=== PATIENT | female | born 1935 | race Hispanic/Latino ===

== ENCOUNTER 2017-02-18 05:01 | Observation (INO) | payer MEDICARE ==
[2017-02-18 05:07] VITALS: BMI 28.3
--- NOTE | 2017-02-18 05:14 | ED PDOC ---
Arrival/HPI - General Time Seen by Provider: 02/18/17 05:03 Historian: Patient - History of Present Illness Narrative History of Present Illness (Text): 02/18/17 05:13 Shirley Sky is an 81 year old female, whose past medical history includes hypertension, hyperlipidemia, anxiety, and basal cell carcinoma, who presents to the Emergency department complaining of chest pain. Patient states she has been experiencing left-sided chest discomfort with associated cold sweats and dizziness since waking up yesterday morning. Patient denies any fever, shortness of breath, nausea, vomiting, diarrhea, urinary symptoms, back pain, neck pain, headache, focal neurological deficits, or any other complaints. PMD: Dr. Barajas/Dr. Richards Time/Duration: 24 hours Symptom Onset: Gradual Symptom Course: Unchanged Activities at Onset: Light Context: Home Past Medical History - Provider Review Nursing Documentation Reviewed: Yes - Infectious Disease Hx of Infectious Diseases: None - Tetanus Immunization Tetanus Immunization: Unknown - Cardiac Hx Cardiac Disorders: Yes Hx Hypertension: Yes - Pulmonary Hx Respiratory Disorders: No - Neurological Hx Neurological Disorder: Yes Hx Dizziness: Yes Other/Comment: Tinnitus secondary to intake of aspirin - HEENT Hx HEENT Disorder: Yes Hx Blind: Yes (Right) Hx Cataracts: Yes (Right sx) - Renal Hx Renal Disorder: No - Endocrine/Metabolic Hx Endocrine Disorders: No - Hematological/Oncological Hx Blood Disorders: Yes Hx Cancer: Yes (Melanoma of nose) Other/Comment: Malaria - Integumentary Hx Dermatological Disorder: Yes Hx Melanoma: Yes (Nose) - Musculoskeletal/Rheumatological Hx Musculoskeletal Disorders: Yes Hx Arthritis: Yes Hx Back Pain: Yes Hx Falls: Yes - Gastrointestinal Hx Gastrointestinal Disorders: Yes Hx Gastroesophageal Reflux: Yes - Genitourinary/Gynecological Hx Genitourinary Disorders: No - Psychiatric Hx Psychophysiologic Disorder: Yes Hx Anxiety: Yes Hx Depression: Yes Hx Emotional Abuse: No Hx Panic Disorder: Yes Hx Physical Abuse: No Hx Substance Use: No - Surgical History Hx Hysterectomy: Yes Other/Comment: Right eye cataract surgery - Anesthesia Hx Anesthesia Reactions: No Hx Malignant Hyperthermia: No - Suicidal Assessment Feels Threatened In Home Enviroment: No Family/Social History - Physician Review Nursing Documentation Reviewed: Yes Family/Social History: Unknown Family HX Smoking Status: Never Smoked Hx Alcohol Use: No Hx Substance Use: No Hx Substance Use Treatment: No Allergies/Home Meds Allergies/Adverse Reactions: Allergies aspirin Adverse Reaction (Intermediate, Verified 02/18/17 05:11) Tinnitus Reported as per patient Home Medications: Home Meds Medication Instructions Recorded Confirmed Amlodipine/Valsartan [Exforge 10 1 tab PO QAM 02/04/15 02/18/17 mg-320 mg] buPROPion XL [Wellbutrin XL] 300 mg PO QAM 02/04/15 02/18/17 Citalopram [celeXA] 20 mg PO DAILY 04/13/16 02/18/17 traZODone [trazODONE HYDROCHLORIDE] 50 mg PO HS 02/18/17 02/18/17 Review of Systems - Physician Review All systems were reviewed & negative as marked: Yes - Review of Systems Constitutional: Other (+cold sweats). absent: Fevers Eyes: Normal ENT: Normal Respiratory: Normal. absent: SOB, Cough Cardiovascular: Chest Pain Gastrointestinal: Normal. absent: Abdominal Pain, Diarrhea, Nausea, Vomiting Genitourinary Female: Normal. absent: Dysuria, Frequency, Hematuria, Urine Output Changes Musculoskeletal: Normal. absent: Back Pain, Neck Pain Skin: Normal. absent: Rash Neurological: Dizziness. absent: Headache Endocrine: Normal Hemo/Lymphatic: Normal Psychiatric: Normal Physical Exam Vital Signs Reviewed: Yes Vital Signs Temp Pulse Resp BP Pulse Ox 02/18/17 10:49 76 17 163/77 H 96 02/18/17 09:53 161/79 H 02/18/17 09:24 98.8 F 81 17 158/74 H 96 02/18/17 07:46 98.9 F 67 17 162/84 H 98 02/18/17 05:05 99.0 F 83 18 174/80 H 98 Temperature: Afebrile Blood Pressure: Hypertensive Pulse: Regular Respiratory Rate: Normal Appearance: Positive for: Well-Appearing, Non-Toxic, Comfortable Pain Distress: None Mental Status: Positive for: Alert and Oriented X 3 - Systems Exam Head: Present: Atraumatic, Normocephalic Pupils: Present: PERRL Extroacular Muscles: Present: EOMI Conjunctiva: Present: Normal Mouth: Present: Moist Mucous Membranes Neck: Present: Normal Range of Motion Respiratory/Chest: Present: Clear to Auscultation, Good Air Exchange. No: Respiratory Distress, Accessory Muscle Use Cardiovascular: Present: Regular Rate and Rhythm, Normal S1, S2. No: Murmurs Abdomen: Present: Normal Bowel Sounds. No: Tenderness, Distention, Peritoneal Signs Back: Present: Normal Inspection Upper Extremity: Present: Normal Inspection. No: Cyanosis, Edema Lower Extremity: Present: Normal Inspection. No: Edema Neurological: Present: GCS=15, CN II-XII Intact, Speech Normal Skin: Present: Warm, Dry, Normal Color. No: Rashes Psychiatric: Present: Alert, Oriented x 3, Normal Insight, Normal Concentration Medical Decision Making ED Course and Treatment: 02/18/17 05:13 Impression: 81 year old female complaining of left-sided chest discomfort, cold sweats, and dizziness since yesterday morning. Plan: -- EKG -- Chest X-ray -- Labs, cardiac enzymes -- Reassess and disposition Prior Visits: Notes and results from previous visits were reviewed. On 04/12/2016, pt was seen in the Emergency department for epigastric/lower chest discomfort with diaphoresis and generalized weakness. Pt was admitted to the hospital for further evaluation. Progress Notes: Reviewed EKG, NSR at [address]-segment elevations or depressions, no T-wave inversions, normal intervals. 02/18/17 05:57 Reviewed radiology, Chest X-ray shows no acute processes. 02/18/17 06:32 Case d/w PMD .Accepts to his service - Lab Interpretations Lab Results: 02/18/17 05:38 02/18/17 05:38 Lab Results 02/18/17 05:38: WBC 7.0 D, RBC 4.55, Hgb 13.3, Hct 38.6, MCV 84.8, MCH 29.2, MCHC 34.5, RDW 13.4, Plt Count 258, MPV 9.0 02/18/17 05:38: Sodium 129 L, Potassium 3.6, Chloride 93 L, Carbon Dioxide 26, Anion Gap 14, BUN 10, Creatinine 0.7, Est GFR ( Amer) > 60, Est GFR (Non- Af Amer) > 60, Random Glucose 161 H, Calcium 8.6, Total Bilirubin 1.8 H, AST 27 , ALT 21, Alkaline Phosphatase 63, Lactate Dehydrogenase 493, Total Creatine Kinase 206, Troponin I < 0.01, Total Protein 6.8, Albumin 4.0, Globulin 2.8, Albumin/Globulin Ratio 1.4 02/18/17 05:38: PT 11.7, INR 1.08, APTT 29.5 02/18/17 05:30: Serum Osmolality 280 02/18/17 05:30: Uric Acid 2.8 - RAD Interpretation Radiology Orders: 02/18/17 05:13 CHEST PORTABLE [RAD] Stat Offset Press Operator Apprentice: ED Physician - EKG Interpretation Interpreted by ED Physician: Yes Type: 12 lead EKG - Medication Orders Current Medication Orders: Amlodipine Besylate (Norvasc) 10 mg PO DAILY [facility] Last Admin: 02/18/17 09:53 Dose: 10 mg [facility] Blood Pressure Document 02/18/17 09:53 IT (Rec: 02/18/17 09:54 IT [facility] [id number]) Blood Pressure Blood Pressure (100/60-150/90) 161/79 Bupropion HCl (Wellbutrin Xl) [facility] Last Admin: 02/18/17 09:53 Dose: 300 mg Citalopram Hydrobromide (Celexa) 20 mg PO DAILY [facility] Last Admin: 02/18/17 09:53 Dose: 20 mg Pantoprazole Sodium (Protonix Inj) 40 mg IVP DAILY [facility] Last Admin: 02/18/17 15:00 Dose: 40 mg IVP Administration Document 02/18/17 15:00 MANIL (Rec: 02/18/17 16:49 MANIL [id number]) Charges for Administration # of IVP Administrations 1 Trazodone HCl (Desyrel) 50 mg PO HS [facility] Discontinued Medications Acetaminophen (Tylenol 325mg Tab) 650 mg PO STAT STA Stop: 02/18/17 05:42 Last Admin: 02/18/17 05:48 Dose: 650 mg [facility] Pain/Vitals Document 02/18/17 05:48 SS (Rec: 02/18/17 05:48 SS [id number]) Pain Reassessment Is This A Pain ReAssessment? No Sleep Is patient sleeping during reassessment? No Presence of Pain Presence of Pain Yes Location Upper or Lower Lower Pain Location Body Blade Grinder Re-Assess: MAR Pain/Vitals Document 02/18/17 06:48 GMI (Rec: 02/18/17 07:51 GMI [id number]) Pain Reassessment Is This A Pain ReAssessment? Yes Sleep Is patient sleeping during reassessment? No Presence of Pain Presence of Pain No Diphenhydramine HCl (Benadryl) 25 mg IVP ONCE ONE Stop: 02/18/17 06:54 Last Admin: 02/18/17 07:09 Dose: 25 mg IVP Administration Document 02/18/17 07:09 SS (Rec: 02/18/17 07:09 SS [id number]) Charges for Administration # of IVP Administrations 1 Metoclopramide HCl (Reglan) 5 mg IVP ONCE ONE Stop: 02/18/17 06:54 Last Admin: 02/18/17 07:09 Dose: 5 mg IVP Administration Document 02/18/17 07:09 SS (Rec: 02/18/17 07:10 SS [id number]) Charges for Administration # of IVP Administrations 1 - Scribe Statement The provider has reviewed the documentation as recorded by the Sandra Dotson Provider Scribe Attestation: All medical record entries made by the Scribpj were at my direction and personally dictated by me. I have reviewed the chart and agree that the record accurately reflects my personal performance of the history, physical exam, medical decision making, and the department course for this patient. I have also personally directed, reviewed, and agree with the discharge instructions and disposition. Disposition/Present on Arrival - Present on Arrival Any Indicators Present on Arrival: No History of DVT/PE: No History of Uncontrolled Diabetes: No Urinary Catheter: No History Surgical Site Infection Following: None - Disposition Have Diagnosis and Disposition been Completed?: Yes Diagnosis: Chest pain Disposition: HOSPITALIZED Disposition Time: 06:33 Patient Plan: Observation Patient Problems: Current Active Problems Problem Status Onset Chest pain Acute Condition: STABLE
[2017-02-18 06:01] LABS: HEMATOCRIT 38.6 % (36.0-48.0); MEAN CELL VOLUME 84.8 fl (80.0-105.0); MEAN CORPUSCULAR HEMOGLOBIN 29.2 pg (25.0-35.0); MEAN CORPUSCULAR HGB CONC 34.5 g/dl (31.0-37.0); RED CELL DISTRIBUTION WIDTH 13.4 % (11.5-14.5)
[2017-02-18 06:08] LABS: INR 1.08 (0.93-1.08); PARTIAL THROMBOPLASTIN TIME 29.5 Seconds (23.7-30.8)
[2017-02-18 06:10] LABS: ALB/GLOB RATIO 1.4 (1.1-1.8); ALKALINE PHOSPHATASE 63 U/L (38-126); ALT/SGPT 21 U/L (7-56); AST/SGOT 27 U/L (14-36); BILIRUBIN,TOTAL 1.8 mg/dL (0.2-1.3); BLOOD UREA NITROGEN 10 mg/dL (7-21); CALCIUM 8.6 mg/dL (8.4-10.5); CARBON DIOXIDE 26 mmol/L (21-33); CHLORIDE 93 mmol/L (98-107); GFR AFRICAN-AMERICAN > 60; GLUCOSE,RANDOM 161 mg/dL (70-110); POTASSIUM 3.6 mmol/L (3.6-5.0); SODIUM 129 mmol/L (132-148); TOTAL PROTEIN 6.8 g/dL (5.8-8.3)
[2017-02-18 06:19] LABS: TROPONIN I < 0.01 ng/mL
[2017-02-18] MEDS ORDERED: DiphenhydrAMINE 50 mg/ml Inj IVP ONE (06:53)
[2017-02-18] MEDS: buPROPion 300 mg/24 Hours XL Tab PO SCH (09:53)
--- NOTE | 2017-02-18 11:05 | RAD ---
HISTORY: Flu-like symptoms, pain. Technique: Single view portable semi erect @ 05:46 COMPARISON: 12/11/2015 FINDINGS: LUNGS: No active pulmonary disease. PLEURA: No significant pleural effusion identified, no pneumothorax apparent. CARDIOVASCULAR: No radiographic findings to suggest acute or significant cardiovascular disease. OSSEOUS STRUCTURES: No significant abnormalities. VISUALIZED UPPER ABDOMEN: Normal. OTHER FINDINGS: None. IMPRESSION: No active disease. No significant interval change compared to the prior examination(s). Please note: No preliminary report/ innterpretation of this examination provided by emergency department personnel.
--- NOTE | 2017-02-18 11:11 | HP ---
CHIEF COMPLAINT AND HISTORY OF PRESENT ILLNESS: This is an 81-year-old female who is coming into the hospital with past medical history of hypertension, dyslipidemia, anxiety, and basal cell carcinoma complaining of chest pain, mostly epigastric area. She says she was having pressure in the head. She also is complaining of chills. No fevers. She said she had taken Tylenol this morning. She said that at the ER she was saying that she was having left-sided chest discomfort. She did not complain of left-sided chest discomfort to me. She has no fevers or chills. Currently, she has no nausea, no vomiting, and no diarrhea. No dysuria or frequency. She had seen Dr. Hendricks in the past, but does not wish to see him anymore for her gastric issues. PAST MEDICAL HISTORY: 1. Hypertension. 2. Anxiety. 3. Basal cell carcinoma. PAST SURGICAL HISTORY: 1. Basal cell carcinoma, surgery of the left nasal bridge. 2. Partial hysterectomy. 3. Cardiac catheterization. 4. Endoscopy. ALLERGIES: ASPIRIN. HOME MEDICATIONS: Exforge, Wellbutrin, Celexa, and trazodone. FAMILY HISTORY: Father in his 80s. She does not know the cause of his . Mother at 88 of pancreatic cancer. SOCIAL HISTORY: She lives with her daughter. She does not smoke or drink. REVIEW OF SYSTEMS: All other review of symptoms are within normal limits except as mentioned. PHYSICAL EXAMINATION: VITAL SIGNS: Temperature is 98.9, pulse is 67, blood pressure is 162/84, respirations are 17, and O2 saturation is 98%. GENERAL: The patient lying in bed, uncomfortable, and in no acute distress. HEENT: Atraumatic and normocephalic. Anicteric sclerae. Moist mucosa. [place] conjunctivae. No oral lesions. NECK: No JVD, anterior and posterior adenopathy, thyromegaly, or bruits. CARDIOVASCULAR: S1 and S2 regular. No murmur, rubs, or gallop. LUNGS: Clear to auscultation bilaterally. No wheezes, rales, or rhonchi. ABDOMEN: Bowel sounds are positive. Soft, nontender and nondistended. No hepatosplenomegaly. No rebound and no guarding. EXTREMITIES: No cyanosis, clubbing, or edema. NEUROLOGIC: No facial asymmetry. Tongue is midline. No vulva deviation. Power is 5/5 upper extremity and lower extremity. Sensation intact in upper extremity and lower extremity. PSYCHIATRIC: She is awake, alert and oriented x3. No anxiety or depression. She has normal affect. GENITOURINARY: No CVA tenderness. VASCULAR: 2+ pulses in the carotid pulses and pedal pulses. SKIN: No erythema or nodules. SPINE: Shows normal curvature. EXTREMITIES: No cyanosis and clubbing, no edema. LABORATORY DATA: White count of 7.0 and hemoglobin of 13.3. INR is 1.08. Sodium is 129. She has troponin of 0.01. DIAGNOSTIC DATA: Chest x-ray done shows no infiltrates. ASSESSMENT: 1. Chest pain. 2. Hypertension. 3. Anxiety. 4. Epigastric pain. 5. Hyponatremia. PLAN: The patient is going to be admitted to the hospital. Her old records were reviewed. I did ask Dr. Retana to evaluate the patient. I will get the serial troponins. The patient is going to have continue her Celexa for her anxiety. She is on amlodipine for her hypertension. She is going to continue her Wellbutrin. She is going to be placed on heart healthy diet. Condition is stable. Activity, increase as tolerated. She has no fevers. Bhavesh Richards MD
--- NOTE | 2017-02-18 19:21 | CON ---
DATE: 02/18/2017 HISTORY OF PRESENT ILLNESS: This patient was seen and evaluated earlier today. This 81-year-old patient presented to the emergency room with feeling of chills and sweats and dizziness from yesterday morning and a whole day it lasted. It felt like flu-like symptoms. She also has history of heartburn. GI consult was requested to further evaluate because of this problem. PAST MEDICAL HISTORY: Other past medical history is significant for hypertension, anxiety and also basal cell carcinoma. The patient had a basal carcinoma of the left nasal bridge. She had a history of partial hysterectomy done in the past. She had an endoscopy and colonoscopies done in the past and colonoscopy revealed only normal. The upper GI endoscopy done on 02/05/[address] De Leon revealed only normal EGD and colonoscopy revealed redundant colon and internal hemorrhoids. The patient was hospitalized in 04/2016 and she was seen by Dr. Chino Hendricks for atypical chest pain. At that time, it was added Protonix and Carafate. SOCIAL HISTORY: Denies smoking or alcohol. REVIEW OF SYSTEMS: Positive as above. PHYSICAL EXAMINATION GENERAL: The patient is lying on the bed, not in acute distress. VITAL SIGNS: Pulse 76, blood pressure 163/77, respirations 17, O2 saturation 96%. HEENT: Anicteric. Has reduced vision on the right side. NECK: Supple. HEART: S1 and S2 heard. LUNGS: Bilateral air entry present. ABDOMEN: Soft. There is no tenderness at the present time. EXTREMITIES: No edema, no cyanosis. NEUROLOGIC: Alert and oriented. Moves all extremities. LABORATORY DATA: Hemoglobin is stable at 13.3, WBC 7, platelets 258. Total bilirubin is elevated to 1.8. IMPRESSION: 1. Atypical chest pain. 2. History of gastroesophageal reflux disease. 3. Elevated total bilirubin. DIFFERENTIAL DIAGNOSES: 1. Previous endoscopy reports are reviewed. I did discuss with the patient about the previous carpenter wooden tank erecting evaluations and offered them to be followed by Dr. De Leon or Dr. Hendricks, but the patient preferred to be followed up this admission by a different carpenter wooden tank erecting. She agreed to be followed since I proceeded with the consultation. 2. The differential diagnosis of atypical chest pain should include reflux disease, rule out cholelithiasis, rule out coronary artery disease. 2. Abnormal liver function tests, rule out Gilbert's, rule out hemolysis. 3. Other comorbidities include anxiety, hyponatremia, and hypertension. RECOMMENDATIONS: 1. We will request for direct bilirubin. 2. We will request for a reticulocyte count, LDH levels and haptoglobin to rule out any evidence of hemolysis with its mainly indirect bilirubin. 3. Ultrasound scan of the abdomen to further evaluate. 4. Continue the PPI. We will start the patient on Protonix. We will continue to closely follow up her care and suggest further management based on the clinical course. Marco Antonio Arambula MD MTDD
--- NOTE | 2017-02-18 19:37 | CARD ---
APPROVED REPORT EKG Measurement Heart [id number] ID [id number] <Conclusion> Normal sinus rhythm Normal ECG
[2017-02-19 07:34] VITALS: BP 164/89; RESP 20; TEMP 98; O2SAT 94
[2017-02-19] MEDS: buPROPion 300 mg/24 Hours XL Tab PO SCH (09:13)
--- NOTE | 2017-02-19 09:17 | US ---
HISTORY: atypical chest pain r/o gallstones COMPARISON: None. TECHNIQUE: Sonographic evaluation of the abdomen. FINDINGS: LIVER: Measures 15.2 cm. Normal echogenicity of the liver parenchyma. No mass. No intrahepatic bile duct dilatation. GALLBLADDER: The gallbladder is well distended without gallstones. There is small amount of layering sludge. No wall thickening or pericholecystic fluid. The sonographic Bhandari's sign is negative. COMMON BILE DUCT: Measures 4.6 mm. No stones. No dilatation. PANCREAS: Unremarkable as visualized. No mass. No ductal dilatation. RIGHT KIDNEY: Measures 10.5cm. Normal echogenicity. No calculus, mass, or hydronephrosis. LEFT KIDNEY: Measures 10.3cm. Normal echogenicity. No calculus, mass, or hydronephrosis. SPLEEN: Normal in size and contour. No mass. AORTA: No aneurysmal dilatation. IVC: Unremarkable. OTHER FINDINGS: None. IMPRESSION: No cholelithiasis or biliary dilatation.
[2017-02-19 11:14] VITALS: PULSE 93
--- NOTE | 2017-02-19 12:28 | CP.PCM.PN ---
<Yvette Arreaga - Last Filed: 02/19/17 12:21> Subjective - Date & Time of Evaluation Date of Evaluation: 02/19/17 Time of Evaluation: 10:15 - Subjective Subjective: Seen and examined at the bedside earlier this morning, no acute overnight events reported. Patient denies nausea, vomiting, shortness of breath, chest pain or abdominal pain. Patient went for abdominal ultrasound and this reported gallbladder sludge no cholelithiasis or biliary biliary dictation, the CBD measured 4.6. Objective - Vital Signs/Intake and Output Vital Signs (last 24 hours): Temp Pulse Resp BP Pulse Ox 98 F 93 H 20 164/89 H 94 L 02/19/17 07:34 02/19/17 10:00 02/19/17 07:34 02/19/17 09:13 02/19/17 07:34 Intake and Output: 02/19/17 02/19/17 06:59 18:59 Intake Total 120 Balance 120 - Labs Labs: PT 11.7 Seconds (9.9-11.8) 02/18/17 05:38 INR 1.08 (0.93-1.08) 02/18/17 05:38 APTT 29.5 Seconds (23.7-30.8) 02/18/17 05:38 - Constitutional Appears: No Acute Distress - Head Exam Head Exam: NORMOCEPHALIC - Eye Exam Eye Exam: Normal appearance. absent: Scleral icterus - ENT Exam ENT Exam: Mucous Membranes Moist - Neck Exam Neck Exam: Normal Inspection - Respiratory Exam Respiratory Exam: NORMAL BREATHING PATTERN. absent: Respiratory Distress - Cardiovascular Exam Cardiovascular Exam: +S1, +S2 - GI/Abdominal Exam GI & Abdominal Exam: Soft, Normal Bowel Sounds. absent: Guarding, Tenderness, Rebound - Extremities Exam Extremities Exam: Normal Capillary Refill. absent: Calf Tenderness, Pedal Edema - Neurological Exam Neurological Exam: Alert, Awake, Oriented x3 - Skin Skin Exam: Dry, Warm Assessment and Plan - Assessment and Plan (Free Text) Assessment: Assessment: Atypical chest pain/Epigastric pain, abdominal ultrasound negative for cholelithiasis did report some sludge, no CBD dilatation. History of hypertension Anxiety abnormal LFTs, R/O Gilbert's or hemolysis, direct bilirubin is within normal limits Plan: Continue PPI Diet as tolerated, trend LFTs Planned for discharge home can FU outpatient and discussed with patient and PCP would benefit from elective outpatient EGD. Seen and discussed with Dr. Arambula. <Marco Antonio Arambula V - Last Filed: 02/19/17 19:43> Objective - Vital Signs/Intake and Output Vital Signs (last 24 hours): Temp Pulse Resp BP Pulse Ox 98 F 93 H 20 164/89 H 94 L 02/19/17 07:34 02/19/17 10:00 02/19/17 07:34 02/19/17 09:13 02/19/17 07:34 - Labs Labs: PT 11.7 Seconds (9.9-11.8) 02/18/17 05:38 INR 1.08 (0.93-1.08) 02/18/17 05:38 APTT 29.5 Seconds (23.7-30.8) 02/18/17 05:38 Attending/Attestation - Attestation I have personally seen and examined this patient.: Yes I have fully participated in the care of the patient.: Yes I have reviewed all pertinent clinical information, including history, physical exam and plan: Yes Notes (Text): This is an addendum to GI progress report dictated by Yvette Arreaga APN.The patient was seen and examined earlier. Medical records, lab studies, imagings were reviewed. Last 24 hours events reviewed. Agreed with the above treatment plan as outlined in Yvette Arreaga APN's notes the with the addition of the following on examination abdomen soft there is no rebound tenderness is much improved The bilirubin is mainly indirect bilirubin Sonogram was negative. Patient would benefit from elective EGD. this will be arranged as outpatient discussed with Dr. Cohen 02/19/17 19:42
--- NOTE | 2017-02-19 17:49 | DS ---
SUBJECTIVE: This is an 81-year-old female who has come into the hospital and was complaining of some abdominal discomfort. She also had complaints of epigastric pain. She had an ultrasound of the abdomen that was done, showed no chololithiasis although ductal dilatation. She was seen by Dr. Arambula. She also had cardiac enzymes, which were negative. The patient was discharged home. She has no complaints of any headaches or dizziness. No nausea. No vomiting. She has a history of chronic hyponatremia since 2013, it has been stable at 129. She is going to be discharged home today. She will follow up as an outpatient. PHYSICAL EXAMINATION: VITAL SIGNS: Temperature is 98, pulse is 68, blood pressure is 164/89 and respirations . GENERAL: The patient is lying in bed, flat, comfortable. HEENT: No oral lesion. Anicteric sclerae. Moist mucosa. NECK: No JVD, adenopathy, or thyromegaly. CARDIOVASCULAR: S1 and S2, regular. No murmurs, rubs, or gallops. LUNGS: Clear to auscultation bilaterally. No wheeze, rales, or rhonchi. ABDOMEN: Bowel sounds are positive, soft, nontender and nondistended. EXTREMITIES: No cyanosis, clubbing or edema. ASSESSMENT: 1. Chest pain. 2. Hypertension. 3. Anxiety. 4. Epigastric pain. 5. Hyponatremia. PLAN: The patient is going to continue her Celexa. She is on trazodone for anxiety. She is receiving Protonix. She is on Wellbutrin. She is going to follow with Dr. Arambula. DIET: 2 g sodium. CONDITION: Stable. ACTIVITY: Increase as tolerated. The hyponatremia may also be related to the Celexa that the patient is on, but she does need it because she does have a history of significant anxiety disorder. Discharged home. Bhavesh Richards MD
--- NOTE | 2017-02-19 21:02 | DS ---
SUBJECTIVE: This is an 81-year-old female who has come into the hospital, was found to have epigastric pain. She was discharged home to follow up as an outpatient. She had an ultrasound, which was negative. Dr. Retana from Cardiology has seen her as well as Dr. Arambula from GI. The patient had ultrasound, which was negative. She has no complaints of any chest pain. No shortness of breath. PHYSICAL EXAMINATION: VITAL SIGNS: Temperature is 98, pulse is 68, blood pressure is 164/89, respirations 20 and O2 saturations 94%. GENERAL: The patient is lying in bed, flat, comfortable. HEENT: No oral lesion. Anicteric sclerae. Moist mucosa. NECK: No JVD, adenopathy, or thyromegaly. CARDIOVASCULAR: S1 and S2, regular. No murmurs, rubs, or gallops. LUNGS: Clear to auscultation bilaterally. No wheeze, rales, or rhonchi. ABDOMEN: Bowel sounds are positive, soft, nontender and nondistended. EXTREMITIES: no cyanosis, clubbing or edema. ASSESSMENT: 1. Chest pain, resolved. 2. Hypertension. 3. Anxiety. 4. Epigastric pain. 5. Hyponatremia, which is chronic. PLAN: The patient is on amlodipine for her hypertension. She is going to continue her Diovan. She is currently comfortable. She is discharged home. Bhavesh Richards MD
== END 2017-02-19 12:02 | disposition home or self-care (01) ==
LOC: ED 05:01 → ERH 06:34 → 3RNO 11:16
PROVIDERS: ADMIT Internal Medicine Nephrology; ATTEND Internal Medicine Nephrology
DX: R07.89 Other chest pain (principal); K21.9 Gastro-esophageal reflux disease without esophagitis; I10 Essential (primary) hypertension; E87.1 Hypo-osmolality and hyponatremia; E78.5 Hyperlipidemia, unspecified; F41.0 Panic disorder [episodic paroxysmal anxiety]; H54.61 Unqualified visual loss, right eye, normal vision left eye; Z79.899 Other long term (current) drug therapy; Z85.820 Personal history of malignant melanoma of skin; Z90.710 Acquired absence of both cervix and uterus; Z80.0 Family history of malignant neoplasm of digestive organs; H93.19 Tinnitus, unspecified ear; T39.015A Adverse effect of aspirin, initial encounter; H26.9 Unspecified cataract; Z98.41 Cataract extraction status, right eye; M19.90 Unspecified osteoarthritis, unspecified site; M54.9 Dorsalgia, unspecified; Z91.81 History of falling; F32.89 Other specified depressive episodes; R40.2412 Glasgow coma scale score 13-15, at arrival to emergency department
CPT/HCPCS: 71010; 76700; 80053; 82248; 82550; 83615; 83930; 84484; 84550; 85027; 85610; 85730; 93005; 96374; 96375; 96376; 99285; C9113; G0378; J1200; J2765

== ENCOUNTER 2018-05-28 08:26 | Outpatient (CLI) | payer MEDICARE | END 2018-05-28 08:27 | disposition home or self-care (01) | LOC: LAB 08:26 ==

== ENCOUNTER 2018-07-05 14:25 | Outpatient (CLI) | payer MEDICARE | END 2018-07-05 14:26 | disposition home or self-care (01) | LOC: RAD 14:25 ==

== ENCOUNTER 2018-07-11 07:46 | Outpatient (CLI) | payer MEDICARE | END 2018-07-11 07:47 | disposition home or self-care (01) | LOC: CARDIO 07:46 ==

== ENCOUNTER 2018-08-28 08:18 | Outpatient (CLI) | payer MEDICARE | END 2018-08-28 08:19 | disposition home or self-care (01) | LOC: LAB 08:18 ==